=== PATIENT | male | born 1940 | race Caucasian/White ===

== ENCOUNTER 2022-10-13 16:31 | Emergency (ER) | payer MEDICARE, OTHER ==
[~2022-10-13] VITALS: Wt 69.4 kg
[~2022-10-13 16:31] MED LIST: ASPIRIN ADULT L81 M1 PO; ATARAX,VISTARIL50 MG PO; BRIN20TA PO; HYDR25T PO; KLOR-CON/2525 MEQ PO; LATU40TA PO; LIPITOR20 MG PO; NISOLDIPINE34 MG PO; TRICOR48 MG PO; VITAMIN D32000 UNIT PO; VITAMIN D50000 I3 PO; ZESTRIL10 MG PO
[2022-10-13 16:37] VITALS: BP 180/82
[2022-10-13 17:11] LABS: BASO % 0.6 % (0.0-1.0); EOS # 0.2 10*3/uL (0.0-0.4); EOS % 2.3 % (1.0-4.0); HEMATOCRIT 38.4 % (42.0-52.0); LYMPH # 1.5 10*3/uL (1.3-4.4); MEAN CELL VOLUME 89.1 fl (80.0-94.0); MEAN CORPUSCULAR HGB CONC 32.6 g/dl (33.0-37.0); MEAN PLATELET VOLUME 9.9 fl (9.6-12.3); MONO # 0.7 10*3/uL (0.1-1.0); NEUT # 4.8 10*3/uL (2.3-7.9); NEUT % 66.8 % (47.0-73.0); PLATELET COUNT AUTOMATED 220 10*3/uL (130-400); RED BLOOD COUNT 4.31 10*6/uL (4.50-5.90); RED CELL DISTRI WIDTH 14.2 % (0-14.5); WHITE BLOOD COUNT 7.2 10*3/uL (4.8-10.8)
[2022-10-13 17:22] LABS: ACT PARTIAL THROMBO TIME 31.6 SECONDS (20.0-32.1); INTERNATIONAL NORM RATIO 1.1 (2.0-3.5)
[2022-10-13 17:30] LABS: ALKALINE PHOSPHATASE 77 U/L (46-116); BUN 18 mg/dl (9-23); CHLORIDE 106 mmol/L (98-107); CPK 253 U/L (34-171); LIPASE 61 U/L (12-53); POTASSIUM 4.1 mmol/L (3.4-5.1); SGPT/ALT 38 U/L (10-49); TOTAL PROTEIN 6.7 gm/dL (6.0-8.0)
[2022-10-13 17:34] LABS: ETHYL ALCOHOL < 3.0 mg/dl (<3)
[2022-10-13 18:06] LABS: BILIRUBIN Negative (Negative); BLOOD Negative (Negative); CLARITY Clear (Clear); COLOR Yellow (Yellow); GLUCOSE Negative (Negative); KETONE Negative (Negative); LEUKO ESTERASE Negative (Negative); NITRITE Negative (Negative); SPECIFIC GRAVITY <= 1.005 (1.001-1.030); UROBILINOGEN 0.2 E.U./dl (0.0-1.0)
[2022-10-13 18:14] LABS: URINE AMPHETAMINES Negative (1000ng/ml); URINE BARBITURATES Negative (200ng/ml); URINE BENZODIAZEPINES Negative (200ng/ml); URINE CANNABINOIDS (THC) Negative (50ng/ml); URINE COCAINE Negative (300ng/ml); URINE METHADONE Negative (300ng/ml); URINE OPIATES Negative (300ng/ml); URINE PHENCYCLIDINE Negative (25ng/ml)
[2022-10-13 18:28] LABS: RBC 0-2 rbc/hpf (0-2); WBC 0-2 wbc/hpf (0-5)
[2022-10-13 19:12] VITALS: BP 148/79
[2022-10-13] MEDS ORDERED: CENTRUM SILVER1 EAC3 PO (22:26)
[2022-10-16] MEDS ORDERED: ZOLOFT25 MG PO (11:20)
[2022-10-16] MEDS ORDERED: TRAZODONE50 MG PO (11:30)
[2022-10-16] MEDS ORDERED: FISH OIL 1,0001 EAC1 PO (11:32)
[2022-10-16] MEDS ORDERED: MIRALAX POWDER17 G1 PO (11:33)
[2022-10-16] MEDS ORDERED: FERROUS SULFAT325 MG PO (11:34)
[2022-10-16] MEDS ORDERED: SEN-O-TABS8.6 MG PO (11:37)
[2022-10-16] MEDS ORDERED: VITAMIN C500 M4 PO (11:38)
[2022-10-16] MEDS ORDERED: TROSPIUM CHLORI20 M1 PO (11:50)
[2022-10-16] MEDS ORDERED: FINASTERIDE5 M1 PO (11:52)
[2022-10-16] MEDS ORDERED: TAMSULOSIN HCL0.4 MG PO (11:52)
[2022-10-16] MEDS ORDERED: ARTIFICIAL TEAR1514 OP (11:55)
== END 2022-10-13 21:05 ==
LOC: ED 16:31 → 3N 20:20 → ED 21:05
PROVIDERS: Emergency Medicine
DX: F31.9 Bipolar disorder, unspecified (principal); Z20.822 Contact with and (suspected) exposure to COVID-19; Z79.899 Other long term (current) drug therapy